=== PATIENT | female | born 1980 | race Caucasian/White ===

== ENCOUNTER 2023-06-11 21:02 | Inpatient (IN) | payer OTHER, SELFPAY ==
[~2023-06-11 21:02] MED LIST: Iopamidol 300 61% 100 ML VIAL FS ONE
[2023-06-11] MEDS ORDERED: Morphine 2 MG/ML VIAL ONE (22:11)
[2023-06-11] MEDS ORDERED: Ondansetron PF 4 MG/2 ML Vial ONE (22:12)
[2023-06-11] MEDS ORDERED: Morphine 4 MG/ML VIAL ONE (22:12)
[2023-06-11 22:33] LABS: #Basophils 0.1 10x3/uL (0.0-0.2); #Eosinphils 0.3 10x3/uL (0.0-0.5); #Monocytes 0.8 10x3/uL (0.0-1.1); %Basophils 0.5 % (0.0-2.0); %Eosinophils 2.1 % (0.0-6.0); %Lymphocytes 21.7 % (18.0-47.0); %Monocytes 5.9 % (0.0-10.0); %Neutrophils 69.4 % (40.0-75.0); Hematocrit 48.9 % (34.9-44.5); Hemoglobin 16.9 g/dL (12.0-15.5); Mean Corpuscular HGB CONC 34.6 g/dL (32.0-36.0); Mean Corpuscular Hemoglobin 31.2 pg (27.0-33.0); Mean Corpuscular Volume 90.2 fl (81.6-98.3); Mean Platelet Volume 10.1 fl (7.4-10.4); Platelet Count 252 10x3/uL (150-450); Red Blood Cell (RBC) Count 5.42 10x6/uL (3.90-5.03); White Blood Cell (WBC) Count 12.9 10x3/uL (3.5-10.5)
[2023-06-11 22:36] LABS: Sodium 136 mmol/L (136-145)
[2023-06-11 22:37] LABS: ALT (SGPT) 43 U/L (8-55); AST (SGOT) 38 U/L (5-34); Alkaline Phosphatase 122 U/L (40-110); Anion Gap 16 mmol/L (10-20); BUN (Urea Nitrogen) 8 mg/dL (7.0-18.7); Bilirubin, Total 0.6 mg/dL (0.2-1.2); Calc. Creatinine Clearance 0 mL/min (70-130); Calcium 9.6 mg/dL (7.8-10.44); Carbon Dioxide 25 mmol/L (22-29); Chloride 99 mmol/L (98-107); Estimated GFR 105; Globulin 3.3 g/dL (2.4-3.5); Glucose 191 mg/dL (70-105); Lipase 9 U/L (8-78); Potassium 3.6 mmol/L (3.5-5.1); Protein, Total 7.3 g/dL (6.0-8.3)
[2023-06-12] MEDS ORDERED: Ketorolac Tromethamine 30 MG/ML VIAL ONE (00:13)
[2023-06-12] MEDS ORDERED: Mag-Al Plus 1200 MG/1200 MG/120 MG/30 ML UDCUP ONE (00:28)
[2023-06-12 00:42] LABS: Bilirubin Neg (Negative); Blood, Urine Negative (Negative); Clarity Clear (Clear); Glucose, Urine (Dipstick) Normal (Negative); Ketone, Urine Negative (Negative); Leukocyte Negative (Negative); Nitrite Negative (Negative); Protein, Urine (Dipstick) Negative (Neg-Trace); Specific Gravity, Urine 1.005 (1.005-1.030); Urobilinogen Normal mg/dL (Less than 2)
[2023-06-12 00:52] LABS: Bacteria/HPF None Seen HPF (None Seen); CAUTI Indications for Culture Pelvic or flank pain; RBC/HPF None Seen HPF (0-3); Squamous Epithelial 0-3 HPF (0-3); WBC/HPF None Seen HPF (0-3)
[2023-06-12 00:53] LABS: Urine Culture Reflex No No
[2023-06-12] MEDS ORDERED: LevoFLOXacin 750 mg/D5W 150 ml Premix Bag ONE ×2 (01:00→23:20)
[2023-06-12] MEDS ORDERED: metroNIDAZOLE 500 MG/100 ML BAG ONE (01:02)
[2023-06-12] MEDS ORDERED: Dextrose 5% in Water 1,000 ML IV PRN (01:06)
[2023-06-12] MEDS ORDERED: Senokot S 8.6-50 MG TAB PO PRN (01:06)
[2023-06-12] MEDS ORDERED: Dextrose 50% Abboject 50 ML SYRINGE SLOW IVP PRN (01:06)
[2023-06-12] MEDS ORDERED: Acetaminophen 325 MG TAB PO PRN (01:06)
[2023-06-12] MEDS ORDERED: Guaifenesin DM 100-10/5 ML UDCUP PO PRN (01:06)
[2023-06-12] MEDS ORDERED: HYDROcodone/Acetaminophen 5/325 mg Tablet PO PRN (01:06)
[2023-06-12] MEDS ORDERED: Ondansetron PF 4 MG/2 ML Vial IVP PRN (01:06)
[2023-06-12] MEDS ORDERED: Glucagon 1 MG/ML KIT IM PRN (01:06)
[2023-06-12] MEDS ORDERED: Calcium Carbonate 500 MG ChewTAB PO PRN (01:06)
[2023-06-12] MEDS ORDERED: HumaLOG 300 UNITS/3 ML VIAL SC PRN (01:06)
[2023-06-12] MEDS ORDERED: Morphine 4 MG/ML VIAL SLOW IVP PRN (01:10)
[2023-06-12] MEDS ORDERED: Morphine 2 MG/ML VIAL SLOW IVP PRN (01:10)
[2023-06-12 01:51] LABS: #Basophils 0.1 10x3/uL (0.0-0.2); #Eosinphils 0.3 10x3/uL (0.0-0.5); #Monocytes 0.8 10x3/uL (0.0-1.1); #Neutrophils 8.5 10x3/uL (1.5-8.4); %Basophils 0.5 % (0.0-2.0); %Eosinophils 2.1 % (0.0-6.0); %Lymphocytes 24.6 % (18.0-47.0); %Monocytes 6.5 % (0.0-10.0); %Neutrophils 65.9 % (40.0-75.0); Hematocrit 47.8 % (34.9-44.5); Hemoglobin 16.2 g/dL (12.0-15.5); Mean Corpuscular HGB CONC 33.9 g/dL (32.0-36.0); Mean Corpuscular Hemoglobin 31.2 pg (27.0-33.0); Mean Corpuscular Volume 91.9 fl (81.6-98.3); Mean Platelet Volume 10.2 fl (7.4-10.4); Platelet Count 231 10x3/uL (150-450); White Blood Cell (WBC) Count 12.9 10x3/uL (3.5-10.5)
[2023-06-12 02:11] LABS: ALT (SGPT) 41 U/L (8-55); AST (SGOT) 37 U/L (5-34); Albumin 3.8 g/dL (3.5-5.0); Alkaline Phosphatase 116 U/L (40-110); Anion Gap 15 mmol/L (10-20); BUN (Urea Nitrogen) 8 mg/dL (7.0-18.7); Bilirubin, Total 0.7 mg/dL (0.2-1.2); Calc. Creatinine Clearance 0 mL/min (70-130); Calcium 9.2 mg/dL (7.8-10.44); Carbon Dioxide 23 mmol/L (22-29); Chloride 100 mmol/L (98-107); Estimated GFR 111; Globulin 3.1 g/dL (2.4-3.5); Glucose 154 mg/dL (70-105); Potassium 3.7 mmol/L (3.5-5.1); Protein, Total 6.9 g/dL (6.0-8.3); Sodium 134 mmol/L (136-145)
[2023-06-12 02:14] LABS: CRP (Inflammatory) 2.87 mg/dL (= or < 0.5)
[2023-06-12 02:55] VITALS: BMI 37.2
[2023-06-12] MEDS: Lactated Ringer's 1,000 ML IV SCH ×3 (03:29→22:55)
[2023-06-12 04:12] LABS: Pregnancy Test - Urine (BHCG) Negative (Negative)
[2023-06-12 04:13] LABS: Pregu Control Background? CLEAR/WHITE (CLR/WHITE); Pregu Control Bar Appear? YES (CONTROL BAR); Specific Gravity 1.005 (1.002-1.036)
[2023-06-12 04:44] LABS: SARS-CoV-2 NAA Rapid Test Not Detected (NotDetected)
[2023-06-12 05:26] LABS: Bilirubin Neg (Negative); Blood, Urine Negative (Negative); Clarity Clear (Clear); Glucose, Urine (Dipstick) Normal (Negative); Ketone, Urine Negative (Negative); Leukocyte 25 (Negative); Nitrite Negative (Negative); Protein, Urine (Dipstick) 15 mg/dl (Neg-Trace)
[2023-06-12 05:35] LABS: Bacteria/HPF None Seen HPF (None Seen); RBC/HPF None Seen HPF (0-3); Squamous Epithelial 0-3 HPF (0-3); WBC/HPF 0-3 HPF (0-3)
[2023-06-12] MEDS ORDERED: Famotidine/PF 20 mg/2ml Vial SLOW IVP SCH (09:00)
[2023-06-12] MEDS: Lisinopril 20 MG TAB PO SCH (09:13)
[2023-06-12] MEDS: Alogliptin 6.25 MG TAB PO SCH (09:13)
[2023-06-12] MEDS: metroNIDAZOLE 500 MG in Premix Bag 1 BAG IVPB SCH ×2 (09:14→18:41)
[2023-06-12] MEDS ORDERED: Lidocaine 4% Patch TD SCH (15:00)
[2023-06-12] MEDS: Pantoprazole 40 MG VIAL IVP SCH (16:59)
[2023-06-13] MEDS ORDERED: LevoFLOXacin 750 mg/D5W 750 MG in Premix Bag 1 BAG IVPB SCH (01:00)
[2023-06-13] MEDS ORDERED: Transdermal Patch Removal TOP SCH (03:00)
[2023-06-13] MEDS: metroNIDAZOLE 500 MG in Premix Bag 1 BAG IVPB SCH (03:14)
[2023-06-13] MEDS: Lactated Ringer's 1,000 ML IV SCH (03:15)
[2023-06-13] MEDS: Alogliptin 6.25 MG TAB PO SCH (09:38)
[2023-06-13] MEDS: Lisinopril 20 MG TAB PO SCH (09:38)
[2023-06-13] MEDS: Pantoprazole 40 MG VIAL IVP SCH (09:39)
[2023-06-13 12:33] VITALS: BP 135/74; TEMP 97.4
== END 2023-06-13 12:05 | disposition home or self-care (01) | DRG 394 ==
LOC: CSHERS 21:02 → CSHTELE 06-12 02:16
PROVIDERS: ADMIT Student in an Organized Health Care Education/Training Program; ATTEND Internal Medicine
DX: K66.8 Other specified disorders of peritoneum (principal); J98.11 Atelectasis; R65.10 Systemic inflammatory response syndrome (SIRS) of non-infectious origin without acute organ dysfunction; R59.0 Localized enlarged lymph nodes; R93.5 Abnormal findings on diagnostic imaging of other abdominal regions, including retroperitoneum; I10 Essential (primary) hypertension; Z98.890 Other specified postprocedural states; Z71.6 Tobacco abuse counseling; Z20.822 Contact with and (suspected) exposure to COVID-19
CPT/HCPCS: 36415; 36416; 74177; 80053; 81001; 81025; 83605; 83690; 84145; 85025; 86140; 87040; 93005; 94760; 96361; 96365; 96368; 96375; C9113; J1650; J1885; J1956; J2270; J2272; J2405; J7120; Q9967; S0028